=== PATIENT | female | born 1965 | race American Indian/Alaskan Native ===

== ENCOUNTER 2018-12-08 17:39 | Emergency (ER) | payer SELFPAY ==
--- NOTE | 2018-12-08 18:47 | Event Note ---
ED Screening Note Date of service: 12/08/18 Time: 18:45 ED Screening Note: This is a 53 y.o. F. that presents to the ER with swelling and pain around right 4th nail bed for 3 days. Denies injury This initial assessment/diagnostic orders/clinical plan/treatment(s) is/are subject to change based on patients health status, clinical progression and re- assessment by fellow clinical providers in the ED. Further treatment and workup at subsequent clinical providers discretion. Patient/guardian urged not to elope from the ED as their condition may be serious if not clinically assessed and managed. Initial orders include:
[2018-12-08] MEDS ORDERED: LIDOCAINE-MPF (1%) 10 MG/1 ML VIAL 5 ML INFILTRATI ONE (19:38)
[2018-12-08] MEDS ORDERED: IBUPROFEN 800 MG TAB PO ONE (19:38)
--- NOTE | 2018-12-08 19:42 | Emergency Department Report ---
Abscess Boil HPI - HPI Chief Complaint: Skin/Abscess/Foreign Body Stated Complaint: FINGER INFECTED Time Seen by Provider: 12/08/18 18:45 Duration: 3 Days Location: Upper Extremity Severity: Moderate History: Yes Pain, No Fever, No Purulent Drainage, No Numbness, No Foreign Body, No Previous History, No Insect Bite HPI: 53-year-old female presents to the emergency room complaining of right finger infection and abscess with pus under the skin 3 days. Patient denies any fever or not injuring her finger. Patient has no past medical history takes no medications on a daily basis and has no known drug allergies. Home Medications: Previous Rx's Medication Instructions Recorded Last Taken Type Ibuprofen [Motrin 800 MG tab] 800 mg PO Q8HR PRN #21 tablet 12/08/18 Unknown Rx cephALEXin [Keflex] 500 mg PO Q12HR #20 cap 12/08/18 Unknown Rx Allergies/Adverse Reactions: Allergies Allergy/AdvReac Type Severity Reaction Status Date / Time No Known Allergies Allergy Verified 12/08/18 18:46 ED Review of Systems ROS: Stated complaint: FINGER INFECTED Other details as noted in HPI Comment: All other systems reviewed and negative ED Past Medical Hx - Past Medical History Previous Medical History?: No - Surgical History Past Surgical History?: No - Social History Smoking Status: Never Smoker Substance Use Type: None - Medications Home Medications: Home Medications Medication Instructions Recorded Confirmed Last Taken Type Ibuprofen [Motrin 800 MG tab] 800 mg PO Q8HR PRN #21 tablet 12/08/18 Unknown Rx cephALEXin [Keflex] 500 mg PO Q12HR #20 cap 12/08/18 Unknown Rx ED Abscess Boil Physical Exam - Exam General: Vital signs noted. No distress. Alert and acting appropriately. Size: 1 cm Exam: Yes Tenderness, Yes Fluctuance, Yes Surrounding Cellulites/Erythema Exam: right index finger lateral cuticle. Tender fluctuant erythematous edematous I & D Note - I & D Note I & D Note: DATE OF PROCEDURE: 12/08/18. PREOPERATIVE DIAGNOSES: 1.soft tissue infection or paronychia. POSTOPERATIVE DIAGNOSES: 1. Paronychia soft tissue infection. Infection appeared to be contained to subcutaneous tissue and there was no evidence of necrotizing soft tissue infection including myonecrosis. OPERATION PERFORMED: Incision and drainage of ..... soft tissue abscess. Provider: Ruben Campos PA-C. ANESTHESIA: Local. DESCRIPTION OF PROCEDURE: The patient was prepped and draped. Seropurulent, somewhat bloody fluid was noted. The infection appeared contained in the subcutaneous tissues above the fascia. There was no evidence of myonecrosis, penetration of the fascia or significant extent along the fascia of the infection. We cleaned the area with Betadine and then packed the wound .......... Dry dressings were applied. The patient appeared to tolerate the procedure well. ED Course Vital Signs 12/08/18 18:45 Temperature 98.6 F Pulse Rate 85 Respiratory 20 Rate Blood Pressure 187/92 [Right] O2 Sat by Pulse 97 Oximetry Critical care attestation.: If time is entered above; I have spent that time in minutes in the direct care of this critically ill patient, excluding procedure time. ED Medical Decision Making - Medical Decision Making 53-year-old female presents to the emergency room complaining of right finger infection and abscess with pus under the skin 3 days. Patient denies any fever or not injuring her finger. Patient has no past medical history takes no medications on a daily basis and has no known drug allergies. ED Disposition Clinical Impression: Paronychia of finger Disposition: DC-01 TO HOME OR SELFCARE Is pt being admited?: No Does the pt Need Aspirin: No Condition: Stable Instructions: Paronychia (ED) Additional Instructions: Complete antibiotics as prescribed. Pain medication as needed. Follow-up with your primary care provider if his symptoms persist or gets worse. Please be sure to clean the bandage daily Prescriptions: cephALEXin [Keflex] 500 mg PO Q12HR #20 cap Ibuprofen [Motrin 800 MG tab] 800 mg PO Q8HR PRN #21 tablet PRN Reason: Pain , Severe (7-10) Referrals: PRIMARY CARE,MD [Primary Care Provider] - 3-5 Days Your,Provider [Other] - 3-5 Days
[2018-12-08 21:00] VITALS: BP 164/90
== END 2018-12-08 20:30 | disposition home or self-care (01) ==
LOC: ED 17:39
DX: L03.011 Cellulitis of right finger (principal)
CPT/HCPCS: 99282

== ENCOUNTER 2019-04-01 18:01 | Emergency (ER) | payer SELFPAY ==
--- NOTE | 2019-04-01 21:19 | Emergency Department Report ---
ED Abdominal Pain HPI - General Chief Complaint: Abdominal Pain Stated Complaint: LFT SIDE KNOT/PAIN Time Seen by Provider: 04/01/19 20:56 Source: patient Mode of arrival: Ambulatory Limitations: No Limitations - History of Present Illness Initial Comments: 53 year old female presents to ED c/o "knot" and swelling to her abdomen. Patient reports she noticed the swelling and knot to her umbilicus/periumbilical area about 2 mths ago. She states its not getting any bigger, its about the same size; She denies any associated pain, nausea, vomiting or constipation. She report GB surgery several years ago but no other surgeries. She denies any fever. She denies any UTI or vag symptoms. She denies any other symptoms at this time. MD Complaint: other ("knot in abdomen", swelling) -: month(s) (2) Location: periumbilical - Related Data Previous Rx's Medication Instructions Recorded Last Taken Type Ibuprofen [Motrin 800 MG tab] 800 mg PO Q8HR PRN #21 tablet 12/08/18 Unknown Rx cephALEXin [Keflex] 500 mg PO Q12HR #20 cap 12/08/18 Unknown Rx Allergies Allergy/AdvReac Type Severity Reaction Status Date / Time No Known Allergies Allergy Verified 12/08/18 18:46 ED Review of Systems ROS: Stated complaint: LFT SIDE KNOT/PAIN Other details as noted in HPI Comment: All other systems reviewed and negative Constitutional: denies: chills, fever Gastrointestinal: other ("knot" to abdomen, abdominal swelling). denies: abdominal pain, nausea, vomiting, diarrhea, constipation Genitourinary: denies: dysuria, frequency, hematuria, abnormal menses Neurological: denies: headache, weakness, numbness, paresthesias, confusion, ab normal gait ED Past Medical Hx - Past Medical History Previous Medical History?: No - Surgical History Past Surgical History?: Yes Hx Breast Surgery: Yes (reduction 1995) Additional Surgical History: gallstone 1994 - Social History Smoking Status: Never Smoker Substance Use Type: None - Medications Home Medications: Home Medications Medication Instructions Recorded Confirmed Last Taken Type Ibuprofen [Motrin 800 MG tab] 800 mg PO Q8HR PRN #21 tablet 12/08/18 Unknown Rx cephALEXin [Keflex] 500 mg PO Q12HR #20 cap 12/08/18 Unknown Rx ED Physical Exam - General Limitations: No Limitations General appearance: alert, in no apparent distress - Head Head exam: Present: atraumatic, normocephalic, normal inspection - Eye Eye exam: Present: normal appearance, PERRL, EOMI Pupils: Present: normal accommodation - ENT ENT exam: Present: normal exam - Respiratory Respiratory exam: Present: normal lung sounds bilaterally - Cardiovascular Cardiovascular Exam: Present: regular rate, normal rhythm, normal heart sounds - GI/Abdominal GI/Abdominal exam: Present: distended (There is what appears to be moderate amt of swelling noted just above umbilicus, it does decrease when patient lays down but not complete; difficulty to determine if this is ventral hernia; she does have small umbilical hernia and adjacent to that she has moderate sized nodular area which very mildly tender but no drainage, erythema or fluctuance. The remaining abdominal exam show some rigidity but no ttp.), mass, hernia. Absent: guarding, rebound - Neurological Exam Neurological exam: Present: alert, oriented X3, CN II-XII intact, normal gait - Psychiatric Psychiatric exam: Present: normal affect, normal mood - Skin Skin exam: Present: intact ED Course Vital Signs 04/01/19 04/02/19 20:34 00:30 Temperature 97.8 F Pulse Rate 94 H 73 Respiratory 18 18 Rate Blood Pressure 141/91 Blood Pressure 152/92 [Left] O2 Sat by Pulse 100 100 Oximetry ED Medical Decision Making - Lab Data Result diagrams: 04/01/19 21:31 04/01/19 21:31 - Radiology Data Radiology results: report reviewed Cat Scan Report Signed Patient: DEBRA PAINTER MR#: [id number] : 1965 Acct:[id number] Age/Sex: 53 / F ADM Date: 04/01/19 Loc: ED Attending Dr: Ordering Physician: AIXA CAZARES Date of Service: 04/01/19 Procedure(s): CT abdomen pelvis w con Accession Number(s): [id number] cc: AIXA CAZARES CT ABDOMEN AND PELVIS WITH IV CONTRAST INDICATION: abdominal distension, hernia. COMPARISON: None available. TECHNIQUE: All CT scans at this facility use dose modulation, automated exposure control, iterative reconstruction or weight based dosing, when appropriate, to reduce radiation dose to as low as reasonably achievable. FINDINGS: Lung Bases: No significant abnormality. Skeletal System: No acute abnormality. ABDOMEN: Liver: No significant abnormality. Gallbladder: Removed. Bile Ducts: No significant abnormality. Pancreas: No significant abnormality. Spleen: No significant abnormality. Adrenals: No significant abnormality. Right Kidney: No significant abnormality. Left Kidney: No significant abnormality. Upper GI tract: No significant abnormality. Lymph Nodes: No significant adenopathy. Aorta: No significant abnormality. Additional Findings: Within the periumbilical subcutaneous fat, there is a complex cystic lesion/collection which measures 7.9 x 4.3 cm on axial series 2 image 135. PELVIS: Colon: No acute abnormality. Urinary Bladder and Distal Ureters: No significant abnormality. Appendix: No significant abnormality. Lymph Nodes: No significant adenopathy. Additional Findings: The uterus is markedly enlarged and heterogeneous with numerous enhancing round lesions. The uterus measures approximately 23 x 21 x 13 cm. IMPRESSION: 1. Heart remains enlarged lipomatous uterus. 2. Complex cystic lesion/collection in the anterior abdominal wall subcutaneous fat in the periumbilical region. This is nonspecific. Endometriosis could have this appearance. Atypical seroma is considered less likely. This does not appear to communicate with the underlying enlarged uterus. No hernia is seen. Signer Name: Mohamud Rowe MD Signed: 04/01/2019 11:06 PM Workstation Name: [id number] Transcribed By: SW Dictated By: Mohamud Rowe MD Electronically Authenticated By: Mohamud Rowe MD Signed Date/Time: 04/01/192305 DD/ 99 TD/TT: - Medical Decision Making Patient presented to ED c/o "knot" and swelling to abdomen for couple months. Labs reviewed and unremarkable. CT reviewed and show she has a complex cystic/collection in the periumbilical area subcutaneous fat of anterior abdominal wall. She also has uterine lipomas. Otherwise nothing else acute and no hernia. Patient denies any abdominal pain, nausea, vomiting, bowel changes or abnormal vaginal symptoms. Her VS stable. She is not ill appearing, not in any acute distress, with normal mental status and neurologically intact. Discussed results with patient, informed her she will need to f/u with general surgeon and OBGYN and she was given referrals to both. Further testing, admission or emergent consultation not indicated at this time. Patient condition is stable and she is appropriated for discharge. Critical care attestation.: If time is entered above; I have spent that time in minutes in the direct care of this critically ill patient, excluding procedure time. ED Disposition Clinical Impression: Abdominal cyst, Abnormal abdominal CT scan, Lipoma Clinical Impression: (Ruled Out): Uterine fibroid Disposition: TO HOME OR SELFCARE Is pt being admited?: No Does the pt Need Aspirin: No Condition: Stable Instructions: Lipoma (ED), Abdominal Pain (ED) Additional Instructions: Recommend that you follow up with OBYGYN for evaluation of your uterine lipoma. Recommend follow up with General surgeon for this Complex cystic lesion/collection seen in the anterior abdominal wall subcutaneous fat in the periumbilical region. Return to ED if worse Referrals: PRIMARY CARE, [Primary Care Provider] - 3-5 Days JUNITO GARCIA MD [Staff Physician] - 3-5 Days MICHELLE GARCIA DO [Staff Physician] - 3-5 Days Forms: Work/School Release Form(ED) Time of Disposition: 00:13
[2019-04-01] MEDS ORDERED: SODIUM CHLORIDE 0.9% 1000 ML 1,000 ML IV ONE (21:20)
[2019-04-01 21:42] LABS: Basophils # (Auto) 0.1 K/mm3 (0.0-0.1); Basophils % (Auto) 1.4 % (0.0-1.8); Eosinophils # (Auto) 0.2 K/mm3 (0.0-0.4); Eosinophils % (Auto) 2.5 % (0.0-4.3); Hematocrit 32.8 % (30.3-42.9); Hemoglobin 10.3 gm/dl (10.1-14.3); Lymphocytes # (Auto) 2.2 K/mm3 (1.2-5.4); Mean Corpuscular HGB Conc 32 % (30-34); Mean Corpuscular Volume 71 fl (79-97); Monocytes # (Auto) 0.6 K/mm3 (0.0-0.8); Monocytes % (Auto) 7.1 % (0.0-7.3); Platelet Count 416 K/mm3 (140-440); Red Blood Count 4.61 M/mm3 (3.65-5.03); Red Cell Distribution Width 18.5 % (13.2-15.2)
[2019-04-01 22:17] LABS: Alanine Aminotransferase 12 units/L (7-56); Albumin 4.2 g/dL (3.9-5); BUN/Creatinine Ratio 17; Blood Urea Nitrogen 12 mg/dL (7-17); Calcium 8.8 mg/dL (8.4-10.2); Hemolysis Index 18
[2019-04-01 22:32] LABS: Bilirubin,Urine NEG (Negative); Blood,Urine NEG (Negative); Color,Urine Yellow (Yellow); Mucus,Urine FEW /HPF; Protein,Urine <15 mg/dL mg/dL (Negative); Urobilinogen,Urine < 2.0 mg/dL (<2.0)
[2019-04-01 22:39] LABS: HCG Qualitative,Urine Negative (Negative)
--- NOTE | 2019-04-01 23:10 | Cat Scan Report ---
CT ABDOMEN AND PELVIS WITH IV CONTRAST INDICATION: abdominal distension, hernia. COMPARISON: None available. TECHNIQUE: All CT scans at this facility use dose modulation, automated exposure control, iterative reconstructi on or weight based dosing, when appropriate, to reduce radiation dose to as low as reasonably achieva ble. FINDINGS: Lung Bases: No significant abnormality. Skeletal System: No acute abnormality. ABDOMEN: Liver: No significant abnormality. Gallbladder: Removed. Bile Ducts: No significant abnormality. Pancreas: No significant abnormality. Spleen: No significant abnormality. Adrenals: No significant abnormality. Right Kidney: No significant abnormality. Left Kidney: No significant abnormality. Upper GI tract: No significant abnormality. Lymph Nodes: No significant adenopathy. Aorta: No significant abnormality. Additional Findings: Within the periumbilical subcutaneous fat, there is a complex cystic lesion/diana ection which measures 7.9 x 4.3 cm on axial series 2 image 135. PELVIS: Colon: No acute abnormality. Urinary Bladder and Distal Ureters: No significant abnormality. Appendix: No significant abnormality. Lymph Nodes: No significant adenopathy. Additional Findings: The uterus is markedly enlarged and heterogeneous with numerous enhancing round lesions. The uterus measures approximately 23 x 21 x 13 cm. IMPRESSION: 1. Heart remains enlarged lipomatous uterus. 2. Complex cystic lesion/collection in the anterior abdominal wall subcutaneous fat in the periumbil ical region. This is nonspecific. Endometriosis could have this appearance. Atypical seroma is consid ered less likely. This does not appear to communicate with the underlying enlarged uterus. No hernia is seen. Signer Name: Mohamud Rowe MD Signed: 04/01/2019 11:06 PM Workstation Name: [id number]
[2019-04-02 01:08] VITALS: BP 152/92
== END 2019-04-02 00:30 | disposition home or self-care (01) ==
LOC: ED 18:01
DX: D17.9 Benign lipomatous neoplasm, unspecified (principal); R93.5 Abnormal findings on diagnostic imaging of other abdominal regions, including retroperitoneum; Z98.890 Other specified postprocedural states; Z79.899 Other long term (current) drug therapy
CPT/HCPCS: 36415; 74177; 80053; 81001; 81025; 85025; 96360; 99284; J7030; Q9967

== ENCOUNTER 2021-09-11 | Emergency (ER) | payer OTHER ==
[2021-09-11 07:28] VITALS: BP 176/97
--- NOTE | 2021-09-11 08:19 | Emergency Department Report ---
ED Extremity Problem HPI - General Chief complaint: Extremity Problem,Nontraumatic Stated complaint: MIDDLE DIGET SWOLLEN Source: patient Mode of arrival: Ambulatory Limitations: No Limitations - History of Present Illness Initial comments: 56-year-old female presents to the ED complaining left middle finger nailbed pain. Patient states that she noticed she had a hangnail and attempted to remove the x3 days ago. She noticed erythema with pus noted to her nailbed. She states that pain is a current 4 out of 10. Patient is able to move extremity without any difficulty. She has a history of hypertension. Denies any numbness or tingling. There is no obvious deformity noted to the finger. No distracting injury noted. Patient is alert and oriented x3. No acute distress noted. No ill appearance noted. MD Complaint: extremity swelling Onset/Timin -: days(s) Location: left History of Same: No Radiation: none Severity scale (0 -10): 2 Quality: aching Consistency: intermittent Improves with: nothing - Related Data Previous Rx's Medication Instructions Recorded Last Taken Type Ibuprofen [Motrin 800 MG tab] 800 mg PO Q8HR PRN #21 tablet 12/08/18 Unknown Rx cephALEXin [Keflex] 500 mg PO Q12HR #20 cap 12/08/18 Unknown Rx Ibuprofen [Motrin] 800 mg PO Q8HR PRN 15 Days #30 09/11/21 Unknown Rx tablet Sulfamethoxazole/Trimethoprim 1 each PO BID 10 Days #20 tab 09/11/21 Unknown Rx [Bactrim DS TAB] Allergies Allergy/AdvReac Type Severity Reaction Status Date / Time No Known Allergies Allergy Verified 12/08/18 18:46 ED Review of Systems ROS: Stated complaint: MIDDLE DIGET SWOLLEN Other details as noted in HPI Constitutional: denies: chills, fever Eyes: denies: eye pain, eye discharge, vision change ENT: denies: ear pain, throat pain Respiratory: denies: cough, shortness of breath, wheezing Cardiovascular: denies: chest pain, palpitations Endocrine: no symptoms reported Gastrointestinal: denies: abdominal pain, nausea, diarrhea Genitourinary: denies: urgency, dysuria, discharge Musculoskeletal: denies: back pain, joint swelling, arthralgia Skin: change in hair/nails. denies: rash, lesions Neurological: denies: headache, weakness, paresthesias Psychiatric: denies: anxiety, depression Hematological/Lymphatic: denies: easy bleeding, easy bruising ED Past Medical Hx - Surgical History Hx Breast Surgery: Yes (reduction 1995) Additional Surgical History: gallstone 1994 - Social History Smoking Status: Never Smoker Substance Use Type: None - Medications Home Medications: Home Medications Medication Instructions Recorded Confirmed Last Taken Type Ibuprofen [Motrin 800 MG tab] 800 mg PO Q8HR PRN #21 tablet 12/08/18 Unknown Rx cephALEXin [Keflex] 500 mg PO Q12HR #20 cap 12/08/18 Unknown Rx Ibuprofen [Motrin] 800 mg PO Q8HR PRN 15 Days #30 09/11/21 Unknown Rx tablet Sulfamethoxazole/Trimethoprim 1 each PO BID 10 Days #20 tab 09/11/21 Unknown Rx [Bactrim DS TAB] ED Physical Exam - General Limitations: No Limitations General appearance: alert, in no apparent distress - Head Head exam: Present: atraumatic, normocephalic - Eye Eye exam: Present: normal appearance - ENT ENT exam: Present: mucous membranes moist - Neck Neck exam: Present: normal inspection - Respiratory Respiratory exam: Present: normal lung sounds bilaterally. Absent: respiratory distress - Cardiovascular Cardiovascular Exam: Present: regular rate, normal rhythm. Absent: systolic murmur, diastolic murmur, rubs, gallop - GI/Abdominal GI/Abdominal exam: Present: soft, normal bowel sounds - Extremities Exam Extremities exam: Present: normal inspection - Back Exam Back exam: Present: normal inspection - Neurological Exam Neurological exam: Present: alert, oriented X3 - Psychiatric Psychiatric exam: Present: normal affect, normal mood - Skin Skin exam: Present: warm, dry, intact, normal color. Absent: rash ED Course Vital Signs 09/11/21 09/11/21 00:12 07:27 Temperature 98.1 F 97.8 F Pulse Rate 76 67 Respiratory 18 18 Rate Blood Pressure 207/92 Blood Pressure 176/97 [Left] O2 Sat by Pulse 96 99 Oximetry ED Medical Decision Making - Medical Decision Making 56-year-old female presents to the ED complaining left middle finger nailbed pain. Patient states that she noticed she had a hangnail and attempted to remove the x3 days ago. She noticed erythema with pus noted to her nailbed. She states that pain is a current 4 out of 10. Patient is able to move extremity without any difficulty. She has a history of hypertension. Denies any numbness or tingling. There is no obvious deformity noted to the finger. No distracting injury noted. Patient is alert and oriented x3. No acute distress noted. No ill appearance noted. Physical examination patient has tender fluctuant noted around the nailbed. Incision and drainage noted sterile dressing applied. Rechecked the patient is resting quietly quietly and comfortable and feeling better. I discussed the results of diagnostic study, my clinical impression and the plan for further treatment with the patient. Patient agrees with plan and discharge at this present time. All question addressed. I have given the patient instruction regarding a diagnosis ,expectation ,follow- up and return precaution. I explained to the patient that emergent condition may arise and to return to the ED for new worsen and any new persisting condition. I have explained the importance of following up with the primary care physician or referral physician listed below has instructed. The patient verbalized understanding of discharge instruction. Critical care attestation.: If time is entered above; I have spent that time in minutes in the direct care of this critically ill patient, excluding procedure time. ED Disposition Clinical Impression: Paronychia Disposition: 01 HOME / SELF CARE / HOMELESS Is pt being admited?: No Does the pt Need Aspirin: No Condition: Stable Instructions: Paronychia, [id number] Additional Instructions: Take medication as prescribed Do not pick at nailbed Prescriptions: Sulfamethoxazole/Trimethoprim [Bactrim DS TAB] 1 each PO BID 10 Days #20 tab Ibuprofen [Motrin] 800 mg PO Q8HR PRN 15 Days #30 tablet PRN Reason: Pain, Mild (1-3) Referrals: [facility] [Provider Group] - 3-5 Days Forms: Work/School Release Form(ED)
== END 2021-09-11 08:45 | disposition home or self-care (01) ==
LOC: ED
DX: L03.012 Cellulitis of left finger (principal); Z98.890 Other specified postprocedural states
CPT/HCPCS: 99282